=== PATIENT | male | born 1990 | race Caucasian/White ===

== ENCOUNTER 2018-11-05 07:17 | Emergency (ER) | payer BC ==
[~2018-11-05] VITALS: Ht 175.3 cm; Wt 76.2 kg
--- NOTE | 2018-11-05 07:30 | NUR ---
PT BIB SELF C/O COUGHING X 2 DAYS WITH CONGESTION, PT IS AOX4, V/S STABLE, NOT IN RESPIRATORY DISTRESS, KEPT RESTED AND COMFORTABLE, WILL CONTINUE TO MONITOR.
[2018-11-05] MEDS ORDERED: ALBUTEROL FS 2.5 MG/3 ML VIAL.NEB ONE (07:43)
[2018-11-05] MEDS ORDERED: IPRATROPIUM NEB FS 0.5 MG/2.5 ML AMPUL.NEB ONE (07:43)
[2018-11-05] MEDS ORDERED: ALBUTEROL FS 2.5 MG/3 ML VIAL.NEB CONTNEB ONE (08:00)
[2018-11-05] MEDS ORDERED: predniSONE 20 MG TABLET PO ONE (08:00)
[2018-11-05] MEDS ORDERED: IPRATROPIUM NEB FS 0.5 MG/2.5 ML AMPUL.NEB NEB ONE (08:00)
--- NOTE | 2018-11-05 08:01 | NUR ---
RADIOLOGY AT BEDSIDE FOR XRAY
[2018-11-05] MEDS ORDERED: predniSONE 20 MG TABLET ONE (08:02)
[2018-11-05] MEDS ORDERED: IBUPROFEN 600 MG TABLET PO ONE ×2 (08:26→08:30)
--- NOTE | 2018-11-05 09:06 | NUR ---
Patient discharged to home in stable condition. Written and verbal after care instructions given. Patient verbalizes understanding of instruction.
[2018-11-05 09:22] VITALS: BP 132/81
== END 2018-11-05 09:23 | disposition home or self-care (01) ==
LOC: ER 07:23
DX: J45.909 Unspecified asthma, uncomplicated (principal); J06.9 Acute upper respiratory infection, unspecified
CPT/HCPCS: 71045-TC; A4606; Z7610